=== PATIENT | male | born 1950 | race Caucasian/White ===

== ENCOUNTER → 2016-06-17 | Outpatient (CLI) | payer MEDICARE ==
[~2016-06-17] MED LIST: ALTACE2.5 MG PO; ALTACE5 MG PO; ASPIRIN325 MG PO; BENADRYL25 MG PO; BUDEPRION SR150 MG PO; CALCIUM + VITA1 EACH PO; CRESTOR20 MG PO; CRESTOR40 MG PO; DONEPEZIL HCL10 MG PO; EFFEXOR XR150 MG PO; EFFEXOR XR75 MG PO; FIBER500 MG PO; HUMALOG100 UNIT/1 SC; INSULIN PUMP SCCONT; ISTALOL5 ML BOTH EYES; LUMIGAN 0.50 DROP/2. BOTH EYES; NAMENDA5 MG PO; NEURONTIN600 MG PO; NORCO 10/3251 TABLET PO; NORCO 5/3251 TABLET PO; PANTOPRAZOLE SO40 MG PO; SYNTHROID112 MCG PO; TYLENOL REGULA325 MG PO; VITAMIN B-12500 MC5 SL; VITAMIN D2000 INTUN PO; WELLBUTRIN SR150 MG PO; ZETIA10 MG PO
== END | disposition home or self-care (01) ==
LOC: CDC 13:53
DX: I49.9 Cardiac arrhythmia, unspecified (principal); M48.00 Spinal stenosis, site unspecified; E11.9 Type 2 diabetes mellitus without complications; E03.9 Hypothyroidism, unspecified
CPT/HCPCS: 93000

== ENCOUNTER 2016-06-25 06:27 | Day surgery (SDC) | payer OTHER, MEDICARE ==
[~2016-06-25] VITALS: Ht 170.2 cm; Wt 76.6 kg
[2016-06-25 07:17] LABS: POINT-OF-CARE METER ID UU14174212
[2016-06-25 07:39] VITALS: BP 187/87
[2016-06-25 10:50] LABS: POINT-OF-CARE METER ID UU13113655; POINT-OF-CARE USER ID ENVKLS06
[2016-06-25 12:29] LABS: POINT-OF-CARE METER ID UU13113675; POINT-OF-CARE USER ID 515036437
[2016-06-25 14:58] VITALS: BP 113/59
[2016-06-25 15:06] LABS: POINT-OF-CARE METER ID UU14188577
[2016-06-25 16:59] VITALS: BP 124/68
[2016-06-25 19:55] VITALS: BP 126/66
[2016-06-25 23:21] LABS: GLUCOSE 356 mg/dL (70-99)
[2016-06-26 00:44] VITALS: BP 112/56
[2016-06-26 04:20] VITALS: BP 119/52
[2016-06-26 06:23] LABS: HEMATOCRIT 28.2 % (38.0-50.0); MCV 88.1 FL (86-99)
[2016-06-26 07:47] LABS: POINT-OF-CARE METER ID UU14188577
[2016-06-26 08:10] VITALS: BP 123/60
[2016-06-26 11:50] VITALS: BP 129/59
[2016-06-26 12:13] LABS: POINT-OF-CARE METER ID UU14188577
[2016-06-26] MEDS ORDERED: NORCO 5/3251 TABLET PO (13:25)
[2016-06-26] MEDS ORDERED: BACLOFEN10 MG PO (13:26)
[2016-06-28 17:56] LABS: POINT-OF-CARE METER ID UU14188577
== END 2016-06-26 14:08 | disposition home or self-care (01) ==
LOC: SDC 06:27 → 2SOUTH 11:57 → 3EAST 13:33 → SDC 15:44 → 3EAST 06-26 14:08
PROVIDERS: Neurological Surgery
DX: M48.06 Spinal stenosis, lumbar region (principal); M54.16 Radiculopathy, lumbar region; E03.9 Hypothyroidism, unspecified; E78.5 Hyperlipidemia, unspecified; E11.9 Type 2 diabetes mellitus without complications; K21.9 Gastro-esophageal reflux disease without esophagitis; I10 Essential (primary) hypertension; Z87.891 Personal history of nicotine dependence; G31.84 Mild cognitive impairment of uncertain or unknown etiology
CPT/HCPCS: 72020; 76000; 82948; 84999; 85014; 85018; G0378; J0330; J0690; J1100; J1170; J1815; J2405; J2710; J3010; J3480; J7120; S0020